=== PATIENT | female | born 1955 | race Caucasian/White ===

== ENCOUNTER 2020-08-23 11:33 | Emergency (ER) | payer OTHER ==
--- OUTSIDE RECORDS SUMMARY | 2020-08-23 11:37 | XMS REPORT | Continuity of Care Document ---
:1955 Author Organization [facility] t Address [address] [place] [address] Care Team Providers Name Role Phone BRICE Attending Clinician Unavailable KARRIE Attending Clinician Unavailable Problems Condition Condition Condition Status Onset Resolution Last Treating Co mments Source Name Details Category Date Date Treatment Clinician Date History of History of Problem Resolve [facility] anxiety anxiety d ity of disorder disorder [place] [facility] History of History of Problem Resolve [facility] arthritis arthritis d ity of [place] [facility] History of History of Problem Resolve [facility] depression depression d it y of [place] [facility] History of History of Problem Resolve Univers diabetes diabetes d ity of mellitus mellitus [place] [facility] History of History of Problem Resolve [facility] fracture fracture d ity of [place] [facility] History of History of Problem Resolve Univers high [place] ity of cholestero cholestero [place] [facility] History of History of Problem Resolve Univers hypertensi hypertensi d it y of on on [place] [facility] History of History of Problem Resolve Univers pneumonia pneumonia d ity of [place] [facility] Encounter Encounter Problem Active Uni vers for repeat for repeat it y of Pap smear Pap smear [place] due to due to Physici previous previous ans insuff insuff cervical cervical cells cells Recurrent Recurrent Problem Active Uni vers UTI UTI ity of [place] [facility] Posterior Posterior Problem Active Uni vers vaginal vaginal ity of wall wall [place] prolapse prolapse Physic i ans Urinary Urinary Problem Active Univers urgency urgency ity of [place] [facility] Urinary Urinary Problem Active Univers frequency frequency ity of [place] [facility] Vaginal Vaginal Problem Active Univers dryness dryness ity of [place] [facility] Dysuria Dysuria Problem Active Univers ity of [place] [facility] ans Unsatisfac Unsatisfac Problem Active U nivers tory tory ity of cytology cytology [place] of vaginal of vaginal Ph ysici Papanicola Papanicola an s ou smear ou smear Allergies, Adverse Reactions, Alerts This patient has no known allergies or adverse reactions. Family History Family Member Diagnosis Comments Start Date Stop Date Source Mother Family history of [facility] [place] cardiac disorder Physicia ns Mother Family history of [facility] hypertension Physicians Father Family history of [facility] [place] cardiac disorder Physicia ns Father FHx: colon cancer [facility] Social History Smoking Status Start Date Stop Date Source Smoker. current status unknown U [facility] Physicians Medications Ordered Filled Start Stop Current Ordering Indication Dosage Frequency Signature Comments Components Source Medication Medication Date Date Medication? Clinician (SIG) Name Name Methenamine Methenamine Yes MARLON TAKE ONE Univers Hippurate 1 Hippurate 1 7-03 [place] TABLET BY ity of GM Oral GM Oral 00:00: N.P. MOUTH TWO [place] Tablet Tablet 00 TIMES Physici DAILY ans levoFLOXaci levoFLOXaci Yes MARLON 1 QD TAKE 1 Univers n 750 MG n 750 MG 6-05 [place] TABLET i ty of Oral Tablet Oral Tablet 00:00: N.P. DAILY. [place] 00 Physici ans Methenamine Methenamine Yes MARLON Q0.5D TAKE 1 Univers Hippurate 1 Hippurate 1 5-29 [place] TABLET ity of GM Oral GM Oral 00:00: N.P. TWICE [place] Tablet Tablet 00 DAILY. Physici ans Estradiol Estradiol Yes MATTHEW 1/2 GM PER Univers 0.1 MG/GM 0.1 MG/GM 4-22 KARRIE M.D. VAGINA AT ity of Vaginal Vaginal 00:00: BEDTIME X [place] Cream Cream 00 7 DAYS, Physici THEN 2 ans TIMES A WEEK traZODone traZODone Yes Unive rs HCl - 100 HCl - 100 ity o f MG Oral MG Oral [place] Tablet Tablet Physici ans Invokana Invokana Yes Univers 300 MG Oral 300 MG Oral i ty of Tablet Tablet [place] [facility] ans Victoza 18 Victoza 18 Yes Uni vers MG/3ML SOLN MG/3ML SOLN i ty of [place] Physici ans metFORMIN metFORMIN Yes Unive rs HCl - 1000 HCl - 1000 ity of MG Oral MG Oral [place] Tablet Tablet Physici ans Glimepiride Glimepiride Yes U nivers 4 MG Oral 4 MG Oral ity o f Tablet Tablet [place] [facility] ans Lisinopril- Lisinopril- Yes U nivers hydroCHLORO hydroCHLORO i ty of thiazide thiazide [place] 20-25 MG 20-25 MG Physici Oral Tablet Oral Tablet a ns FLUoxetine FLUoxetine Yes Uni vers HCl - 20 MG HCl - 20 MG i ty of Oral Oral [place] Capsule Capsule Physici ans Pravastatin Pravastatin Yes U nivers Sodium 80 Sodium 80 ity o f MG Oral MG Oral [place] Tablet Tablet Physici ans Meloxicam Meloxicam Yes Unive rs 15 MG Oral 15 MG Oral ity of Tablet Tablet [place] Physici ans CoQ-10 CAPS CoQ-10 CAPS Yes U nivers ity of [place] Physici ans Aspirin Low Aspirin Low Yes U nivers Dose 81 MG Dose 81 MG ity of TABS TABS [place] [facility] ans Chlor-Table Chlor-Table Yes U nivers ts 4 MG ts 4 MG ity of TABS TABS [place] Physici ans Vital Signs Vital Name Observation Time Observation Value Comments Source BP Systolic 2019-02-06 122 mm[Hg] Location: Replaced by [facility] 15:14:00 Position: [place] Physician s Sitting BP Diastolic 2019-02-06 88 mm[Hg] Location: Replaced by [facility] 15:14:00 Position: [place] Physician s Sitting Height 2019-02-06 61.75 [in_us] [facility] 15:14:00 [place] [facility] s Weight 2019-02-06 150 [lb_av] [facility] 15:14:00 [place] [facility] s Body Mass Index 2019-02-06 27.66 kg/m2 [place] o f Calculated 15:14:00 [place] [facility] s BP Systolic 2019-01-04 100 mm[Hg] Location: Replaced by [facility] 13:13:00 Position: [place] Physician s Sitting BP Diastolic 2019-01-04 60 mm[Hg] Location: Replaced by [facility] 13:13:00 Position: [place] Phys[place] s Sitting Height 2019-01-04 61.75 [in_us] [facility] 13:13:00 [place] Physician s Weight 2019-01-04 150 [lb_av] [facility] 13:13:00 [place] [facility] s Body Mass Index 2019-01-04 27.66 kg/m2 [place] o f Calculated 13:13:00 [place] [facility] s Temperature 2019-01-04 96.5 [degF] [facility] 13:13:00 [place] [facility]ician s BP Systolic 2018-12-31 110 mm[Hg] Location: Replaced by [facility] 13:44:00 Position: [place] Physician s Sitting BP Diastolic 2018-12-31 74 mm[Hg] Location: Replaced by [facility] :44:00 Position: [place] Physician s Sitting Height 2018-12-31 61.75 [in_us] University 13:44:00 [place] [facility] s Weight 2018-12-31 150 [lb_av] University 13:44:00 [place] [facility] s Body Mass Index 2018-12-31 27.66 kg/m2 University o f Calculated 13:44:00 [place] [facility] s Temperature 2018-12-31 97.1 [degF] [facility] 13:44:00 [place] [facility] s BP Systolic 2018-12-24 120 mm[Hg] Location: [facility]; [facility] 16:12:00 Position: [place] Physician s Sitting BP Diastolic 2018-12-24 70 mm[Hg] Location: Replaced by [facility] 16:12:00 Position: [place] Physician s Sitting Height 2018-12-24 61.75 [in_us] University 16:12:00 [place] [facility] s Weight 2018-12-24 150 [lb_av] [facility] 16:12:00 [place] [facility] s Body Mass Index 2018-12-24 27.66 kg/m2 University o f Calculated 16:12:00 [place] [facility] s Temperature 2018-12-24 98.1 [degF] [facility] 16:12:00 [place] [facility] Procedures Procedure Date / Time Performing Clinician Source Performed [QLH] CULTURE, URINE, 2019-02-06 00:00:00 Univer [facility] ROUTINE Physicians [QLH] CULTURE, URINE, 2019-01-04 00:00:00 [facility] ROUTINE Physicians [H] Pap Liquid-based w/ 2018-12-31 00:00[facility] [H] Pap Liquid-based w/ 2018-12-24 00:00:00 [facility] [QLH] CULTURE, URINE, 2018-12-24 00:00:00 [facility] History of Hysterectomy [facility]i [facility] Physicians [facility] History of Cataract [facility] [place] surgery Physicians History of Carpal tunnel Univers ity [facility] surgery Physicians History of Appendectomy [facility] [place] [facility] History of Tonsillectomy Univers ity [facility] Physicians Encounters Start End Encounter Admission Attending Care Care Encounter Source Date/Time Date/Time Type Type Clinicians Facility Department ID 2019-02-06 2019-02-06 Zhou NARVAEZ, UTP UroGynecolo 5 [id number] Univers 15:20:00 15:20:00 t; GINGER [facility]ON gy [facility] s GINGER MASON Physic i ans 2019-01-04 2019-01-04 Appointmen SANDIP NARVAEZ UroGynecolo 5 [id number] Univers 13:20:00 13:20:00 t; GINGER [facility]ON gy Center it y of [facility] s GINGER MASON Physic i ans 2018-12-31 2018-12-31 Appointmen SANDIP YOON UTP [id number] Univers 14:30:00 14:30:00 t; MATTHEW YOON ity of [place], M.D. [place] [facility] ans 2018-12-31 2018-12-31 Appointmen SANDIP YOON UroGynecolo [id number] Univers 14:10:00 14:10:00 t; MATTHEW YOON gy [facility] it y idalmis CASTRO M.D. [facility] Physici ans 2018-12-24 2018-12-24 Appointmen SANDIP YOON UroGynecolo [id number] Univers 16:10:00 16:10:00 t; MATTHEW YOON gy [facility] [facility] y idal[facility] Results Test Description Test Time Test Comments Results Result Comments Source [QL] CULTURE, URINE, ROUTINE 2019-02-07 14:12:01 Test Item Value Reference Range Interpretation Comme nts ORGANISM (test code = 699-9) Escherichia coliEnterococcus Species FINAL REPORT (test code = FINAL >100,000 CFU/mL Escherichia coli 50 ,000 - REPORT) 100,000 CFU/mL Enterococcus Species [facility][H] [id number] 14:12:01 Test Item Value Reference Range Interpretation Comments ORGANISM (test code = 699-9) Escherichia coli Amikacin (test code = - S Amikacin) Ampicillin (test code = - S Ampicillin) Ampicillin/Sulbactam (test - S code = Ampicillin/Sulbactam) Cefazolin (test code = - S Cefazolin) Ceftriaxone (test code = - S Ceftriaxone) Ciprofloxacin (test code = - S Ciprofloxacin) Cefepime (test code = - S Cefepime) ESBL Confirmation (test code - = ESBL Confirmation) Gentamicin (test code = - S Gentamicin) Levofloxacin (test code = - S Levofloxacin) Nitrofurantoin (test code = - S Nitrofurantoin) Piperacillin/Tazobactam - S (test code = Piperacillin/Tazobactam) Trimethoprim/Sulfamethoxazol - S e (test code = Trimethoprim/Sulfamethoxazol e) Tobramycin (test code = - S Tobramycin) Cefuroxime (test code = - S Cefuroxime) Meropenem (test code = - S Meropenem) Tetracycline (test code = - S Tetracycline) [facility][H] [id number] 14:12:01 Test Item Value Reference Range Interpretation Comments ORGANISM (test code = Enterococcus 699-9) Species Ampicillin (test code - S = Ampicillin) Levofloxacin (test - S code = Levofloxacin) Nitrofurantoin (test - S code = Nitrofurantoin) Tetracycline (test - R code = Tetracycline) Vancomycin (test code SEE NOTES S S= [place] ceptible, = Vancomycin) R= Resistant, I= Intermediate, N/A= Not Applicable [facility][O] Urine Dipstick (In Office)2019-02-06 00:00:00 Test Item Value Reference Range Interpretation Comments Glucose (test code = Glucose) neg N LEUKOCYTES (test code = LEUKOCYTES) neg N NITRITE; Normal (test code = 03500-9) neg N UROBILINOGEN; Normal (test code = 0.2 N 97123-4) PROTEIN; Normal (test code = 29865-7) neg N pH (test code = pH) 5.5 N URINE BLOOD; Abnormal (test code = trace A 37046-1) SPECIFIC GRAVITY; Abnormal (test code = 1.030 A 2965-2) KETONES; Normal (test code = 01998-8) neg N BILIRUBIN; Abnormal (test code = small A 52764-3) [facility]] CULTURE, URINE, [id number] 15:03:01 Test Item Value Reference Range Interpretation Comments ORGANISM (test code = Escherichia coli 699-9) FINAL REPORT (test >100,000 CFU/mL code = FINAL REPORT) Escherichia coli [facility][H] [id number] 15:03:01 Test Item Value Reference Range Interpretation Comments ORGANISM (test code = Escherichia coli 699-9) Amikacin (test code = - S Amikacin) Ampicillin (test code - S = Ampicillin) Ampicillin/Sulbactam - S (test code = Ampicillin/Sulbactam) Cefazolin (test code - S = Cefazolin) Ceftriaxone (test - S code = Ceftriaxone) Ciprofloxacin (test - S code = Ciprofloxacin) Cefepime (test code = - S Cefepime) ESBL Confirmation - (test code = ESBL Confirmation) Gentamicin (test code - S = Gentamicin) Levofloxacin (test - S code = Levofloxacin) Nitrofurantoin (test - S code = Nitrofurantoin) Piperacillin/Tazobact - S am (test code = Piperacillin/Tazobact am) Trimethoprim/Sulfamet - S hoxazole (test code = Trimethoprim/Sulfamet hoxazole) Tobramycin (test code - S = Tobramycin) Cefuroxime (test code - S = Cefuroxime) Meropenem (test code - S = Meropenem) Tetracycline (test SEE NOTES S S= Suscep tible, code = Tetracycline) R= Resi stant, I= Intermediate, N/A= Not Applicable [facility][O] Urine Dipstick (In Office)2019-01-04 13:39:00 Test Item Value Reference Range Interpretation Comments Glucose (test code = Glucose) >=1000mg/dl A LEUKOCYTES (test code = 1+ A LEUKOCYTES) NITRITE; Normal (test code = neg N 03144-0) UROBILINOGEN; Normal (test code = 0.2 N 02642-0) PROTEIN; Abnormal (test code = trace A 22931-5) pH (test code = pH) 6.0 N URINE BLOOD; Abnormal (test code trace A = 64693-9) SPECIFIC GRAVITY; Normal (test 1.015 N code = 2965-2) KETONES; Normal (test code = neg N 35079-2) BILIRUBIN; Normal (test code = neg N 48586-3) [facility][O] Urine Dipstick (In Office)2018-12-31 14:32:00 Test Item Value Reference Range Interpretation Comments Glucose (test code = Glucose) >=1000MG/DL A LEUKOCYTES (test code = NEG N LEUKOCYTES) NITRITE; Normal (test code = NEG N 53485-2) UROBILINOGEN; Normal (test code = 0.2 N 09607-2) PROTEIN; Normal (test code = NEG N 79278-9) pH (test code = pH) 5.5 N URINE BLOOD; Abnormal (test code 1+ A = 09820-9) SPECIFIC GRAVITY; Normal (test 1.015 N code = 2965-2) KETONES; Abnormal (test code = 40MG/DL A 38808-5) BILIRUBIN; Normal (test code = NEG N 26470-4) [facility][H] Pap Liquid-based w/ [id number] 11:00:01 Test Item Value Reference Range Interpretation Comments Pap Diagnosis (test Comment NEGATIVE FOR code = 12915-3) INTRAEPITHEL IAL LESION OR MALIGNANCY. Specimen Adequacy Comment Satisfacto ry for (test code = evaluation. En docervical Specimen Adequacy) component may not bedistinguished in cases of atrophy. Pap Performed By Comment Roro mcfadden, (test code = Pap Cytotechnol ogist (ASCP) Performed By) Pap Comment (test Comment The Pap sm ear is a code = Pap Comment) screenin g test designed to aid in thede tection of premalignant an d malignant condi tions of theuterine cerv ix. It is not a diagnosti c procedure andsh ould not be used as the sole means of detecting cervicalcancer. Both false-positive and false-negative reports dooccur. Ryan Methodology Comment This liquid based (test code = Ryan ThinPrep(R ) pap test was Methodology) screened withth e use of an image guided system. HPV Aptima (test Negative Negative This test d etects code = 86439-3) fourteen hig h-risk HPV types(16/18/31/ 33/35/39/4 5/ 51/52/56/58/ 59/66/68) withoutdifferen tiation.So urce........... ..CervixLM P / Prev Treat. ..NoneNo. of containers.. 01 ThinPrep VialPe rformed At: [place] [facility] [place], [place] [id number] Vira CARRERO Ph:[phone] 1Performed At: [facility] [facility], [place] [id number] Vira CARRERO Ph:[phone] 1 Source Pap (test CERVIX code = Source Pap) Date of LMP (test NA code = Date of LMP) Previous Treatment NONE (test code = Previous Treatment) [facility][QLH] CULTURE, URINE, [id number] 15:11:01 Test Item Value Reference Range Interpretation Comments FINAL REPORT (test code = FINAL No Growth REPORT) [facility][H] Pap Liquid-based w/ [id number] 15:11:01 Test Item Value Reference Range Interpretation Comments Source Pap (test CERVIX code = Source Pap) Date of LMP (test code = Date of LMP) Previous Treatment NONE (test code = Previous Treatment) Pap Diagnosis (test Comment UNSATISF ACTORY FOR code = 11240-9) EVALUATION. Specimen Adequacy Comment SPECIMEN P ROCESSED AND (test code = EXAMINED, BUT Specimen Adequacy) UNSATISFA CTORY FOR EVALUATION OFEP ITHELIAL ABNORMALITY BEC AUSE OF INSUFFICIENT CELLULARITY. Pap Performed By Comment Emma Tidwell, (test code = Pap Cytotechnol ogist Performed By) (ASCP)Reviewed at: [facility] [id number] [place], [place] [address] Pap QC Reviewed by Comment Phyllis cortés, (test code = Pap QC Cytotech nologist (ASCP) Reviewed by) Pap Comment (test Comment The Pap sm ear is a code = Pap Comment) screenin g test designed to aid in thede tection of premalignant and malignant condi tions of theuterine cerv ix. It is not a diagno stic procedure andsh ould not be used as the sole means of detect ing cervicalcancer. Both false-positive and false-negative reports dooccur. Ryan Methodology Comment This liquid based (test code = Ryan ThinPrep(R ) pap test was Methodology) screened withth e use of an image guided system. HPV Aptima (test Negative Negative This test d etects code = 13125-0) fourteen hig h-risk HPV types(16/18/31/ 33/35/39/ 45/ 51/52/56/58/59/ 66/68) withoutdifferen tiation.S ource.......... ...Cervix LMP / Prev Treat...NoneNo. of containers..01 ThinPrep VialPerformed A t: [place] [facility] [id number] [place], [place] [id number] Constantino MD Ph:[phone] rformed At: [place] [id number] [place], [place] [id number] Vira CARRERO Ph:[phone] 1 [facility][O] Urine Dipstick (In Office)2018-12-24 16:41:00 Test Item Value Reference Range Interpretation Comments Glucose (test code = Glucose) 500mg/dl A LEUKOCYTES (test code = LEUKOCYTES) neg N NITRITE; Normal (test code = neg N 40320-1) UROBILINOGEN; Normal (test code = 0.2 N 80863-0) PROTEIN; Normal (test code = neg N 89242-3) pH (test code = pH) 5.5 N URINE BLOOD; Normal (test code = neg N 29601-2) SPECIFIC GRAVITY; Normal (test code 1.020 N = 2965-2) KETONES; Abnormal (test code = 15mg/dl A 05003-1) BILIRUBIN; Normal (test code = neg N 56522-8) [facility] PhysiciansTobacco Use [id number] 16:10:00 Test Item Value Reference Range Interpretation Comments Completed (test code = Completed) DONE [facility] [place] [facility]
--- NOTE | 2020-08-23 13:15 | EDPHYS ---
Physician Documentation [facility] Name: Hue Davis Age: 65 yrs Sex: Female : 1955 Arrival Date: 08/23/2020 Time: 11:37 Bed 4 Private MD: JERI Physician Clyde Gaspar HPI: 08/23 12:20 This 65 yrs old Female presents to ER via Wheelchair with complaints of Fall cp Injury, Knee Injury. 12:20 The patient presents with pain, that is acute, swelling, tenderness. The complaints cp affect the lateral aspect of left knee and left knee. Context: Patient reports left knee gave out while walking causing her to fall. Denies direct trauma to knee. Historical: - Allergies: 12:23 Beta-Blockers (Beta-Adrenergic Blocking Agts); jl7 - Home Meds: 12:23 Victoza 2-Rivera subcutaneous subcutaneous [Active]; Farxiga oral oral [Active]; Metformin jl7 Oral [Active]; pravastatin oral oral [Active]; losartan oral oral [Active]; Prozac Oral [Active]; meloxicam oral oral [Active]; - PMHx: 12:23 Depression; High Cholesterol; Hypertension; Diabetes - NIDDM; jl7 - PSHx: 12:23 Cholecystectomy; Appendectomy; Hysterectomy; Tonsillectomy; Carpal Tunnel Repair; jl7 cataracts; breast augmentation; - Immunization history:: Adult Immunizations up to date. - Social history:: Smoking status: Patient reports the use of cigarette tobacco products, smokes one-half pack cigarettes per day. ROS: 12:25 MS/extremity: Positive for pain, of the lateral aspect of left knee, Negative for cp deformity, paresthesias. 12:25 Constitutional: Negative for fever. cp 12:25 Neck: Negative for pain with movement, pain at rest, stiffness. 12:25 Respiratory: Negative for cough, shortness of breath, wheezing. 12:25 Abdomen/GI: Negative for abdominal pain. 12:25 Back: Negative for pain at rest, pain with movement. 12:25 Skin: Negative for rash. 12:25 Neuro: Negative for syncope, weakness. 12:25 All other systems are negative. Exam: 12:30 Constitutional: The patient appears in no acute distress, alert, awake, cp non-diaphoretic, non-toxic, well developed, well nourished. 12:30 Cardiovascular: Rate: normal, Edema: is not appreciated. cp 12:30 Respiratory: the patient does not display signs of respiratory distress, Respirations: normal, no use of accessory muscles, no retractions. 12:30 Musculoskeletal/extremity: Joints: the left knee displays painful range of motion, swelling, tenderness. 12:30 Skin: cellulitis, is not appreciated, no rash present. Vital Signs: 12:07 BP 128 / 70; Pulse 68; Resp 17; Temp 98; Pulse Ox 95% ; Weight 66.22 kg; Height 5 ft. 2 jl7 in. (157.48 cm); Pain 3/10; 12:07 Body Mass Index 26.70 (66.22 kg, 157.48 cm) jl7 Procedures: 13:45 Splinting: Splint applied to left knee using knee immobilizer, applied by nurse. cp Examined by me, post splint application: neurovascular intact, Patient tolerated well. MDM: 12:11 Patient medically screened. cp 12:35 Differential diagnosis: dislocation, closed fracture, tendonitis. cp 13:08 Data reviewed: vital signs, nurses notes, radiologic studies, plain films. Test cp interpretation: by ED physician or midlevel provider: xrays of knee negative for fracture. 13:15 Counseling: I had a detailed discussion with the patient and/or guardian regarding: the cp historical points, exam findings, and any diagnostic results supporting the discharge/admit diagnosis, radiology results, the need for outpatient follow up, a orthopedic surgeon, to return to the emergency department if symptoms worsen or persist or if there are any questions or concerns that arise at home. 08/23 12:14 Order name: XRAY Knee LEFT 3 view cp 08/23 13:14 Order name: Knee Immobilizer; Complete Time: 13:52 cp Administered Medications: 13:37 Drug: traMADol 50 mg Route: PO; iw 13:53 Follow up: Response: Medication administered at discharge. jl7 Disposition: 13:30 Chart complete. cp 08/24 10:40 Co-signature as Attending Physician, Clyde Gaspar MD I agree with the assessment and marga plan of care. Disposition: 08/23/20 13:15 Discharged to Home. Impression: Pain in left knee. - Condition is Stable. - Discharge Instructions: Knee Immobilizer, Knee Pain. - Prescriptions for Tramadol 50 mg Oral Tablet - take 1 tablet by ORAL route every 8 hours as needed; 12 tablet. - Medication Reconciliation Form, Thank You Letter, Antibiotic Education, Prescription Opioid Use form. - Follow up: Edwin Valladares MD; When: 2 - 3 days; Reason: Recheck today's complaints. - Problem is new. - Symptoms have improved. Signatures: Dispatcher [employer] EDClyde Montero MD MD cha Williams, Irene RN RN iw Clyde Lugo PA PA cp Kandice De La Fuente RN RN jl7 Corrections: (The following items were deleted from the chart) 08/23 13:54 13:15 08/23/2020 13:15 Discharged to Home. Impression: Pain in left knee. Condition is jl7 Stable. Forms are Medication Reconciliation Form, Thank You Letter, Antibiotic Education, Prescription Opioid Use. Follow up: Dr. Edwin Valladares; When: 2 - 3 days; Reason: Recheck today's complaints. Problem is new. Symptoms have improved. cp
--- NOTE | 2020-08-23 13:15 | ER ---
Nurse's Notes [facility] Name: Hue Davis Age: 65 yrs Sex: Female : 1955 Arrival Date: 08/23/2020 Time: 11:37 Bed 4 Private MD: Diagnosis: Pain in left knee Presentation: 08/23 12:07 Chief complaint: Patient states: Tripped and fell yesterday, c/o left knee pain. jl7 Coronavirus screen: Client denies travel out of the [place] in the last 14 days. At this time, the client does not indicate any symptoms associated with coronavirus-19. Ebola Screen: No symptoms or risks identified at this time. Initial Sepsis Screen: Does the patient meet any 2 criteria? No. Patient's initial sepsis screen is negative. Does the patient have a suspected source of infection? No. Patient's initial sepsis screen is negative. Risk Assessment: Do you want to hurt yourself or someone else? Patient reports no desire to harm self or others. Onset of symptoms was August 22, 2020. Care prior to arrival: None. 12:07 Method Of Arrival: Wheelchair jl7 12:07 Acuity: LO 4 jl7 Triage Assessment: 12:23 General: Appears in no apparent distress. uncomfortable, Behavior is calm, cooperative, jl7 appropriate for age. Pain: Complains of pain in lateral aspect of left knee Pain currently is 3 out of 10 on a pain scale. at worst was 10 out of 10 on a pain scale. Quality of pain is described as sharp, Is intermittent. Neuro: Level of Consciousness is awake, alert, obeys commands, Oriented to person, place, time, situation. Cardiovascular: Patient's skin is warm and dry. Respiratory: Airway is patent Respiratory effort is even, unlabored, Respiratory pattern is regular, symmetrical. Derm: Skin is pink, warm \T\ dry. Musculoskeletal: Swelling absent. Historical: - Allergies: 12:23 Beta-Blockers (Beta-Adrenergic Blocking Agts); jl7 - Home Meds: 12:23 Victoza 2-Rivera subcutaneous subcutaneous [Active]; Farxiga oral oral [Active]; Metformin jl7 Oral [Active]; pravastatin oral oral [Active]; losartan oral oral [Active]; Prozac Oral [Active]; meloxicam oral oral [Active]; - PMHx: 12:23 Depression; High Cholesterol; Hypertension; Diabetes - NIDDM; jl7 - PSHx: 12:23 Cholecystectomy; Appendectomy; Hysterectomy; Tonsillectomy; Carpal Tunnel Repair; jl7 cataracts; breast augmentation; - Immunization history:: Adult Immunizations up to date. - Social history:: Smoking status: Patient reports the use of cigarette tobacco products, smokes one-half pack cigarettes per day. Screenin:25 Abuse screen: Denies threats or abuse. Denies injuries from another. Nutritional jl7 screening: No deficits noted. Tuberculosis screening: No symptoms or risk factors identified. Fall Risk Fall in past 12 months (25 points). Total Alvarado Fall Scale indicates Low Risk Score (25-44 pts). Fall prevention measures have been instituted. Side Rails Up X 2 Placed close to Nursing Station Frequent Obs/Assesments occuring Family Present and informed to notify staff if they need to leave bedside As available Patient and Family Educated on Fall Prevention Program and strategies. Assessment: 12:25 General: see triage assessment. jl7 13:30 Reassessment: Patient appears in no apparent distress at this time. No changes from jl7 previously documented assessment. Patient and/or family updated on plan of care and expected duration. Pain level reassessed. Patient is alert, oriented x 3, equal unlabored respirations, skin warm/dry/pink. Vital Signs: 12:07 BP 128 / 70; Pulse 68; Resp 17; Temp 98; Pulse Ox 95% ; Weight 66.22 kg; Height 5 ft. 2 jl7 in. (157.48 cm); Pain 3/10; 12:07 Body Mass Index 26.70 (66.22 kg, 157.48 cm) jl7 ED Course: 11:37 Patient arrived in ED. bp1 11:52 Kandice De La Fuente, FRANCINE is Primary Nurse. jl7 12:03 Clyde Lugo PA is PHCP. cp 12:03 Clyde Gaspar MD is Attending Physician. cp 12:09 Triage completed. jl7 12:23 Arm band placed on right wrist. jl7 12:25 Patient has correct armband on for positive identification. Placed in gown. Bed in low jl7 position. Call light in reach. Side rails up X 1. Pulse ox on. NIBP on. 13:14 Edwin Valladares MD is Referral Physician. cp 13:29 XRAY Knee LEFT 3 view In Process Unspecified. EDMS 13:53 No provider procedures requiring assistance completed. Patient did not have IV access jl7 during this emergency room visit. Administered Medications: 13:37 Drug: traMADol 50 mg Route: PO; iw 13:53 Follow up: Response: Medication administered at discharge. jl7 Outcome: 13:15 Discharge ordered by MD. cp 13:53 Discharged to home via wheelchair, with family. jl7 13:53 Condition: stable 13:53 Discharge instructions given to patient, family, Instructed on discharge instructions, follow up and referral plans. medication usage, Demonstrated understanding of instructions, follow-up care, medications, Prescriptions given X 1. 13:54 Patient left the ED. jl7 Signatures: Dispatcher [employer] EDMS Etta Seymour, RN RN Clyde De La Cruz, Kandice Spencer cp, RN RN janet7 Esther Welch
[2020-08-23] MEDS ORDERED: TRAMADOL HCL 50 MG TAB ONE (13:47)
--- NOTE | 2020-08-23 13:50 | RAD REPORT ---
EXAM DESCRIPTION: RAD - Knee Left 3 View - 08/23/2020 1:29 pm CLINICAL HISTORY: PAIN COMPARISON: No comparisonsNo comparisons FINDINGS: No fracture, dislocation or periosteal reaction.No joint effusion seen. No measurable join t space narrowing. No soft tissue abnormality. Small bone densities adjacent to the lateral margin la teral femoral condyle are not acute. IMPRESSION: No acute left knee bone or joint finding. Clinical concerns for internal derangement or occult bony injury could be further assessed with MR im aging.
[2020-08-27 01:02] VITALS: BP 128/70; TEMP 98; O2SAT 95
== END 2020-08-23 13:54 | disposition home or self-care (01) ==
LOC: ER 11:33
DX: M25.562 Pain in left knee (principal); I10 Essential (primary) hypertension; E11.9 Type 2 diabetes mellitus without complications; F32.9 Major depressive disorder, single episode, unspecified; E78.00 Pure hypercholesterolemia, unspecified; F17.210 Nicotine dependence, cigarettes, uncomplicated; Z88.8 Allergy status to other drugs, medicaments and biological substances; Z98.82 Breast implant status
CPT/HCPCS: 99284

== ENCOUNTER 2023-03-10 08:23 | Day surgery (SDC) | payer OTHER ==
[2023-03-10] MEDS ORDERED: NA CHLORIDE 0.9% 1,000 ML ONE (08:34)
[2023-03-10] MEDS ORDERED: propofoL 200 MG/20 ML VIAL IV ONE ×3 (09:06→09:39)
[2023-03-10] MEDS ORDERED: LIDOCAINE 1% MPF 5 ML VIAL ONE (09:06)
[2023-03-10] MEDS ORDERED: EPHEDRINE SULF 50 MG/ML VIAL ONE (09:38)
[2023-03-10 12:20] VITALS: BP 93/50; TEMP 98.9; O2SAT 99
== END 2023-03-10 10:44 | disposition home or self-care (01) ==
LOC: OR 08:23
PROVIDERS: ATTEND Surgery
PROC: 0DBH8ZX Excision of Cecum, Via Natural or Artificial Opening Endoscopic, Diagnostic (ICD-10-PCS; principal; 2023-03-10 11:00)
DX: Z12.11 Encounter for screening for malignant neoplasm of colon (principal); K57.30 Diverticulosis of large intestine without perforation or abscess without bleeding; K64.8 Other hemorrhoids; K63.5 Polyp of colon
CPT/HCPCS: 80048; 36415; 82947; 88305; 45380; J2704 ×2; J2001; J7030

== ENCOUNTER 2023-05-26 06:52 | Day surgery (SDC) | payer OTHER ==
[2023-05-24 16:38] LABS: Potassium 3.8 mEq/L (3.5-5.1)
[2023-05-26] MEDS: NA CHLORIDE 0.9% 1,000 ML ONE ×2 (07:20→07:41)
[2023-05-26] MEDS ORDERED: BUPIVACAINE 0.25% PF 10 ML VIAL ONE (07:45)
[2023-05-26] MEDS ORDERED: LIDOCAINE HCL/EPINEPHRINE 20 ML MDV ONE (07:45)
[2023-05-26] MEDS ORDERED: LIDOCAINE 2% MPF 5 ML VIAL ONE (07:57)
[2023-05-26] MEDS ORDERED: FENTANYL CITR 100 MCG/2 ML ONE (07:57)
[2023-05-26] MEDS ORDERED: MIDAZOLAM HCL 2 MG/2 ML INJ ONE (07:57)
[2023-05-26] MEDS ORDERED: propofoL 200 MG/20 ML VIAL IV ONE (07:57)
[2023-05-26] MEDS ORDERED: ONDANSETRON 4 MG/2 ML VIAL ONE (08:05)
[2023-05-26] MEDS ORDERED: CEFAZOLIN SODIUM 1 GM/VIAL ONE (08:25)
[2023-05-26] MEDS ORDERED: EPHEDRINE SULF 50 MG/ML VIAL ONE (08:32)
--- NOTE | 2023-05-26 08:44 | P.OP ---
Preoperative diagnosis: LEFT Neck Mass Postoperative diagnosis: LEFT Neck Mass Primary procedure: Excisional Biopsy of LEFT Neck Mass Anesthesia: GETA + Local Estimated blood loss: <2cc Specimen: Mass - Lipomatous Findings: ~ 0.5cm lipomatous mass Complications: None Transferred to: Recovery Room Condition: Good
--- NOTE | 2023-05-26 09:09 | OP ---
Date of Procedure: 05/26/2023 Surgeon: Ramesh Jean-Baptiste MD, Preoperative Diagnosis: Left neck mass. Postoperative Diagnosis: Left neck mass. Procedure Performed: Excisional biopsy of left neck mass. Anesthesia: General endotracheal plus local with 0.25% Marcaine. Estimated Blood Loss: Less than 2 cc. Specimen: Lipomatous mass removed from the left neck area. Findings: Approximately 0.5 cm lipomatous mass of the left neck. Complications: None. Disposition: Patient transferred to recovery room in good condition. Procedure In Detail: After informed consent was obtained, patient was brought to the operating room, prepped and draped in the usual sterile fashion. After adequate anesthesia was achieved, I palpated an area and premarked the area with a marking pen overlying an area of nodularity in the left neck a long the medial border of the sternocleidomastoid. I dissected down through subcutaneous tissues usi ng a 15 blade. I then used electrocautery to dissect through the adipose tissue and palpated the reg ion. Once again, a small adipose like tissue mass was appreciated. This area was grasped elevated a nd circumferentially dissected using combination of blunt dissection predominantly as well as Metzenb aum and electrocautery. The mass was then removed, sent off for pathologic examination. I then palp ated the area. The patient had multiple slightly enlarged lymph nodes throughout the area both super iorly and inferiorly. However, these did not appear to be involving the area of concern and as such I opted to irrigate the area at this point. No hemostatic measures required. Good hemostasis was ac hieved. I closed the deep dermal plane at this point, using 4-0 Vicryl suture in an interrupted fash ion and the skin was closed using a 4-0 Monocryl in a running fashion. Dermabond placed over top. P atient tolerated the procedure well without evidence of complication, transferred to PACU in good con dition. All counts were correct at the end of the case. TK/MODL Voice ID: [id number] Report ID: [id number]
[2023-05-26 09:43] VITALS: BP 116/65; TEMP 98.2; O2SAT 99
== END 2023-05-26 10:11 | disposition home or self-care (01) ==
LOC: OR 06:52
PROVIDERS: ATTEND Surgery
PROC: 0JB50ZZ Excision of Left Neck Subcutaneous Tissue and Fascia, Open Approach (ICD-10-PCS; principal; 2023-05-26 08:00)
DX: D17.0 Benign lipomatous neoplasm of skin and subcutaneous tissue of head, face and neck (principal)
CPT/HCPCS: 80048; 36415; 82947 ×2; 88304; 11420; J2704; J2001; J2250; J3010; J2405; J7030; J0690